=== PATIENT | male | born 1945 | race Two or more races ===

== ENCOUNTER 2019-07-10 11:32 | Emergency (ER) | payer BC ==
[~2019-07-10] VITALS: Ht 177.8 cm; Wt 83.9 kg
[2019-07-10] MEDS ORDERED: METFORMIN HCL1000 M1 ORAL (11:43)
[2019-07-10] MEDS ORDERED: LITHIUM CARBON300 MG ORAL ×2 (11:43→12:31)
[2019-07-10 11:45] VITALS: BP 132/77
--- NOTE | 2019-07-10 11:45 | NUR ---
ED Nurse Note: PT WALKED IN TO ED FOR C/O PAIN TO LEFT HIP WITH ABSCESS X 3 WEEKS.
[2019-07-10] MEDS ORDERED: Ketorolac 30mg Inj IM ONE (12:15)
[2019-07-10] MEDS ORDERED: Methocarbamol 750mg tab ORAL ONE (12:15)
[2019-07-10] MEDS ORDERED: TYLENOL EXTRA500 MG ORAL (12:31)
[2019-07-10] MEDS ORDERED: ROBAXIN-750750 MG PO (12:31)
[2019-07-10] MEDS ORDERED: LIDODERM700 M1 TOPIC (12:31)
[2019-07-10 12:36] VITALS: BP 110/72
--- NOTE | 2019-07-10 12:36 | NUR ---
ER DISCHARGE NOTE: Pt is cleared to be discharge per ERMD,. Pt is AOx4, on RA, VSS. pt was given dc and prescription instructions, pt was able to verbalize understanding, pt id band removed. pt is able to ambulate with steady gait. Pt left ER with all belongings.
--- NOTE | 2019-07-10 13:59 | Emergency Room Report ---
History of Present Illness General Chief Complaint: Skin Rash/Abscess Source: Patient Present Illness HPI 73-year-old male presents the ED for evaluation. Complaining of left hip pain x3 weeks. Denies any fall or injury. at bedside states that he has been sitting and driving long distances. Pain is an 8 out of 10, burning, nonradiating. Is able to bear weight. No other aggravating relieving factors. Denies any other associated symptoms Allergies: Coded Allergies: No Known Allergies (Unverified , 07/10/19) Patient History Past Medical History: DM, psych hx Past Surgical History: none Pertinent Family History: none Social History: Denies: smoking, alcohol use, drug use Immunizations: UTD Reviewed Nursing Documentation: PMH: Agreed; PSxH: Agreed Nursing Documentation-PMH Past Medical History: No History, Except For Hx Diabetes: Yes Hx Gastrointestinal Problems: No Hx Dialysis: No - BPH History Of Psychiatric Problem: Yes - depression Review of Systems All Other Systems: negative except mentioned in HPI Physical Exam Vital Signs Date Time Temp Pulse Resp B/P (MAP) Pulse Ox O2 Delivery O2 Flow Rate FiO2 07/10/19 11:37 98.2 71 17 137/77 (97) 99 Room Air Sp02 EP Interpretation: reviewed, normal General Appearance: no apparent distress, alert, GCS 15, non-toxic Head: normocephalic Eyes: bilateral eye normal inspection, bilateral eye PERRL ENT: normal ENT inspection Neck: normal inspection Respiratory: normal inspection Cardiovascular #1: normal inspection Gastrointestinal: normal inspection Rectal: deferred Genitourinary: normal inspection Musculoskeletal: normal inspection, normal range of motion, tender - L buttock Neurologic: alert, motor strength/tone normal, oriented x3, sensory intact, responsive, speech normal Psychiatric: normal inspection Skin: no rash Lymphatic: normal inspection Medical Decision Making Diagnostic Impression: Primary Impression: Strain of hip Qualified Codes: S76.012A - Strain of muscle, fascia and tendon of left hip, initial encounter ER Course Hospital Course 73-year-old male presents to ED complaining of L buttock pain no trauma Differential diagnoses include: Fracture, dislocation, sprain, contusion, bursitis Clinical course Patient placed on stretcher. After initial history, physical exam reveals an elderly male in no acute distress. There is some tenderness to the left buttock. No erythema or induration. No bony crepitus. Remainder of exam unremarkable. I discussed findings with patient. And with . Pain is likely muscular. Patient does sit in car for prolonged periods of time and drives long distances. Given pain meds here with pain improved. Will discharge home with prescription for medications. Patient also requesting refill of his lithium. Is unable to see his PMD until July. Provides documentation that he is prescribed lithium. I will provide him for refill for the month. Safe for discharge for close outpatient follow-up Diagnosis - strain of hip stable and discharged to home with prescription for Tylenol, Robaxin, Lidoderm. Followup with PMD. Return to ED if symptoms recur or worsen Last Vital Signs Date Time Temp Pulse Resp B/P (MAP) Pulse Ox O2 Delivery O2 Flow Rate FiO2 07/10/19 12:36 98.2 07/10/19 12:36 72 22 110/72 100 Room Air Status: improved Disposition: HOME, SELF-CARE Condition: Stable Scripts Lidocaine Patch* (Lidoderm Patch*) 1 Each Adh..patch 1 PATCH TOPIC DAILY, #7 PATCH 0 Refills Patch(es) may remain in place for up to 12 hours in any 24-hour period. Prov: Jeyson Marin MD 07/10/19 Methocarbamol* (ROBAXIN-750*) 750 Mg Tablet 750 MG PO TID, #21 TAB 0 Refills Prov: Jeyson Marin MD 07/10/19 Acetaminophen* (TYLENOL EXTRA STRENGTH*) 500 Mg Tablet 500 MG ORAL Q8H PRN for Prn Headache/Temp > 101, #30 TAB 0 Refills Prov: Jeyson Marin MD 07/10/19 [place] Carbonate* (LITHIUM*) 300 Mg Capsule 300 MG ORAL BID for 30 Days, CAP 0 Refills Prov: Jeyson Marin MD 07/10/19 Referrals: NON PHYSICIAN (PCP) Shad [facility] Patient Instructions: Muscle Strain, [id number] Jeyson Marin MD Jul 10, 2019 13:59
== END 2019-07-10 12:36 | disposition home or self-care (01) ==
LOC: EMR 12:25
DX: S76.012A Strain of muscle, fascia and tendon of left hip, initial encounter (principal); X58.XXXA Exposure to other specified factors, initial encounter; Y92.9 Unspecified place or not applicable; E11.9 Type 2 diabetes mellitus without complications; F32.9 Major depressive disorder, single episode, unspecified
CPT/HCPCS: 96372; 99283; J1885